=== PATIENT | female | born 1965 | race Caucasian/White ===

== ENCOUNTER 2021-01-24 09:45 | Emergency (ER) | payer OTHER, SELFPAY ==
[2021-01-24 10:01] VITALS: BP 122/79; PULSE 110; RESP 20; TEMP 36.8; O2SAT 96; BMI 23.8
--- NOTE | 2021-01-24 10:06 | XR_ITS ---
WS: [id number] Exam: XR chest 1V portable [id number] Date/Time of Exam: 01/24/2021 10:09 AM Reason For Exam: SOB No priors. There is mild patchy infiltrate in the right lower lobe. Left lower lobe atelectasis noted. No pneumo thorax. No pleural effusion is seen. Normal cardiomediastinal silhouette for technique. Unremarkable regional bony structures. XR/XR chest 1V portable [id number] IMPRESSION: 1. Right basal infiltrate. This could represent pneumonia or chronic change. 2. Left lower lobe atelectasis
--- NOTE | 2021-01-24 11:25 | W.ED.BACK ---
Documented by User: HANNAH Perla 01/24/21 13:43 HPI - Back Pain/Injury General: Chief Complaint: Back Pain/Injury Stated Complaint: BACK PAIN/SOB/SENT FROM Time Seen by Provider: 01/24/21 10:45 Source: patient Mode of arrival: ambulatory Limitations: no limitations History of Present Illness: HPI Narrative: Patient is a 55-year-old female who presents to ED today with a complaint of right-sided back pain and a productive cough. Patient tells me last week she injured her back. 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 Patient states she was seen at the walk-in clinic by Dr. Lopez who placed her on celebrex, baclofen, and tramadol. She states the baclofen has been working good for her back spasms. She states since injuring her back she has now developed a productive cough. She initially attributed it to her smoker's cough however when she noticed a small amount of blood in her sputum she got worried. Patient states she went back to the walk-in clinic and Dr. Lopez sent her to the ED for a CXR (his note was reviewed and did not document the ED recommendation-possibly not completed yet). She states he already called her in a script antibiotics. Patient does not complain of chest pain or SOB. No leg pain/swelling/calf pain. No hematuria or urinary symptoms. MD elicited complaint: back pain Onset (ago): day(s) Timing: constant Location: right upper back Radiation: chest Exacerbating factors: movement, deep breaths and coughing/sneezing Relieving factors: none Associated symptoms: Deny abdominal pain, chills, dysuria, fatigue, fever(s), hematuria, nausea, syncope, urinary urgency or vomiting Treatments prior to arrival: other (NSAID, muscle relaxers, pain meds) Work related injury: Yes Review of Systems Const: Denies: fever(s), chills, body aches, fatigue or malaise Card: Reports: chest pain; Denies: palpitations, irregular heart rhythm, edema, swelling of feet/ankles, lightheadedness, syncope, pre-syncope, dyspnea on exertion, orthopnea, leg pain with exertion or acrocyanosis Resp: Reports: productive cough, pain on inspiration, hemoptysis and chest congestion; Denies: dyspnea, wheezing or stridor GI: Denies: abdominal pain, nausea, vomiting or diarrhea : Denies: flank pain, difficulty voiding, dysuria, urinary frequency, urinary urgency, urinary hesitancy or hematuria Musc: Reports: back pain; Denies: neck pain, extremity pain or joint pain Skin/Breast: Denies: rash Neuro: Denies: headache(s), numbness in extremities, weakness in extremities, sensory changes or dizziness PFS ED PFSH: Medical History (Updated 01/24/21 @ 14:39 by Darin Lopez MD) Acute lumbar myofascial strain Cough Hematemesis/vomiting blood Vomiting Social History Smoking and tobacco status: current every day smoker Alcohol intake: current Physical Exam Const: COMMON NORMALS: no acute distress, average body habitus, patient oriented x3, no limitations, healthy appearing, alert and well nourished GENERAL APPEARANCE: cooperative ORIENTATION/CONSCIOUSNESS: Yes awake, Yes oriented to person, Yes oriented to place and Yes oriented to time HENMT: COMMON NORMALS: normocephalic and atraumatic HEAD & SCALP: normocephalic and atraumatic Neck/C-Spine: COMMON NORMALS: full ROM and no lymphadenopathy Chest: COMMONS NORMALS: normal inspection of the chest OTHER: TTP posterior/lateral chest wall Resp: COMMON NORMALS: normal respiratory effort and clear to auscultation bilaterally EFFORT & INSPECTION: Yes able to speak in complete sentences AUSCULTATION: clear to auscultation bilaterally Cardio: COMMON NORMALS: regular rhythm RATE: tachycardic (mild 105) RHYTHM: regular rhythm GI: COMMON NORMALS: Normal to inspection, nondistended, normoactive bowel sounds present, Soft to palpation, non-tender, No hepatosplenomegaly present and no masses PALPATION: Yes Soft to palpation and Yes No hepatosplenomegaly present Extremity: COMMON NORMALS: normal to inspection and full ROM GENERAL: Yes normal exam except as noted Neuro: ALEX COMA SCALE: document GCS findings Alex coma scale eye opening: Spontaneous Alex coma scale verbal response: Orientated Alex coma scale motor response: Obey commands [place] coma scale total score: 15 COMMON NORMALS: patient oriented x3, moves all extremities, no focal motor deficits, no sensory deficits noted and gait normal SENSORIUM/ORIENTATION: Yes alert, Yes oriented to person, Yes oriented to place and Yes oriented to time Skin: COMMON NORMALS: no rashes or lesions noted GENERAL SKIN EXAM: no rashes or lesions noted Course Vital Signs: Vital signs: Vital Signs Temperature 98.2 F 01/24/21 10:01 Pulse Rate 110 H 01/24/21 13:37 Respiratory Rate 18 01/24/21 13:37 Blood Pressure 127/90 01/24/21 13:37 Pulse Oximetry 96 01/24/21 13:37 MDM - Back Pain/Injury MDM Narrative: Medical decision making narrative: Patient's initial KEREN is consistent with a musculoskeletal back strain. She was/is getting relief from the Baclofen. Most likely patient having shallow inspiration secondary to discomfort and now has developed a right lower lobe pneumonia. Labs are fairly unremarkable. She is mildly tachycardic. I have no suspicion for a PE. Well score would be 2.5 secondary to her tachycardia and hemoptysis although she has only had one episode of this and that could be contributed to the pneumonia and/or chronic smoking. No urinary symptoms or hematuria to suggest renal pathology for the flank/back pain. No abdominal radiation. No chest pain/SOB. At this time will treat for outpatient CAP with augmentin/macrolid following guidelines for therapy and recommend close follow up with PCP for resolving symptoms. Return to ED precautions given. Lab Data: Labs: Lab Results 01/24/21 01/24/21 11:57 11:57 WBC 10.1 10^3/uL H 10 ^3/uL (4.0-10.0) RBC 4.79 10^6/uL 10^6 /uL (4.1-5.3) Hgb 16.7 g/dL H g/dL (11.5-15.3) Hct 48.0 % H % (37.0-47.0) MCV 100.2 fl H fl (81-99) MCH 34.9 pg H pg (28.0-34.0) MCHC 34.8 g/dL g/dL (30.0-36.0) RDW 12.3 % % (12.1-15.1) Plt Count 149 10^3/cmm 10^3 /cmm (130-400) MPV 10.0 fL fL (7.4-10.4) Neut % (Auto) 78.1 % % Lymph % (Auto) 11.7 % % [place] % (Auto) 8.9 % % Eos % (Auto) 0.3 % % Baso % (Auto) 0.5 % % Neut # (Auto) 7.86 10^3/uL H 10 ^3/uL (1.8-7.7) Lymph # (Auto) 1.2 10^3/uL 10^3/ uL (0.8-4.8) [place] # (Auto) 0.9 10^3/uL 10^3/ uL (0.2-0.9) Eos # (Auto) 0.0 10^3/uL 10^3/ uL (0.0-0.8) Baso # (Auto) 0.1 10^3/uL 10^3/ uL (0.0-0.1) Nucleated RBC % (a uto) 0 % % Nucleated RBCs # 0.0 /100WBC /100W BC Sodium 136 mmol/L mmol/L (136-145) Potassium 4.1 mmol/L mmol/L (3.5-5.1) Chloride 94 mmol/L L mmol/ L (98-107) Carbon Dioxide 22 mmol/L mmol/L (22-29) Anion Gap 24.1 H (5-19) BUN 9 mg/dL mg/dL (6-20) Creatinine 0.4 mg/dL L mg/dL (0.5-0.9) GFR Calculation 165.7 mL/min H mL /min (90-130) Glucose 97 mg/dL mg/dL (65-115) Calculated Osmolal ity 281 mOsm/kg L mOs m/kg (285-295) Calcium 9.3 mg/dL mg/dL (8.5-10.5) Total Bilirubin 0.9 mg/dL mg/dL (0.15-1.2) AST 31 U/L U/L (0-32) ALT 22 U/L U/L (0-33) Alkaline Phosphata se 85 IU/L IU/L (35-105) Total Protein 8.8 g/dL H g/dL (6.6-8.7) Albumin 4.1 g/dL g/dL (3.5-5.2) Globulin 4.7 g/dL H g/dL (1.3-4.6) Procalcitonin 0.25 ng/mL ng/mL (0-0.5) Imaging Data^: CXR: Radiologist's impression: [facility] [address] [place] [address] XRay Report Signed Patient: Kathleen Ceron Unit #: [id number] : 1965 Age/Sex: 55 / F ADM Date: 01/24/21 Loc: ER Room/Bed: Attending Dr: Ordering Provider/Ordering MD: Glenn Funk DO Date of Service: 01/24/21 Procedure(s): XR chest 1V portable [id number] Accession Number(s): [id number] Report Number: [id number] WS: [id number] Exam: XR chest 1V portable [id number] Date/Time of Exam: 01/24/2021 10:09 AM Reason For Exam: SOB No priors. There is mild patchy infiltrate in the right lower lobe. Left lower lobe atelectasis noted. No pneumothorax. No pleural effusion is seen. Normal cardiomediastinal silhouette for technique. Unremarkable regional bony structures. XR/XR chest 1V portable [id number] IMPRESSION: 1. Right basal infiltrate. This could represent pneumonia or chronic change. 2. Left lower lobe atelectasis Dictated By: Steve Tyson DO Signed By: Steve Tyson DO Signed Date/Time: 01/24/21 1018 DD/ 1016 Discharge Plan Discharge Patient Disposition: Home Clinical Impression: Pneumonia Qualifiers: Pneumonia type: due to unspecified organism Laterality: right Lung location: lower lobe of lung Qualified Code(s): J18.9 - Pneumonia, unspecified organism Condition: Stable Prescriptions: New azithromycin 250 mg tablet See Rx Instructions .ROUTE .COMPLEX Qty: 6 RF: 0 Augmentin 875-125 mg tablet 1 tab PO Q12H 7 Days Qty: 14 RF: 0 No Action celecoxib 200 mg capsule 200 mg PO BID PRN (Reason: pain) Qty: 30 RF: 1 baclofen 5 mg tablet 5 mg PO TID Qty: 30 RF: 0 tramadol 50 mg tablet 50 mg PO Q8H PRN (Reason: mod to severe pain) Qty: 20 RF: 0 ondansetron 4 mg tablet,disintegrating 4 mg PO Q8H PRN (Reason: nausea and vomiting) Qty: 7 RF: 0 Discharge Orders: Discharge ED (Routine); Ordered 01/24/21 Ordered By: Etelvina Bull Referrals: Darin Lopez MD [Primary Care Provider] - Patient Instructions: Pneumonia (ED) Activity Restrictions/Additional Instructions: As we discussed please follow-up with Dr. Lopez in 3 to 5 days for reevaluation. You need to return to the emergency department for worsening or non-improving pain, severe shortness of breath, chest pain, difficulty breathing, passing out episodes, or any other concerns you may have. I hope you begin to feel better soon. Stand Alone Forms: Work/School Release Coding Level of Care Code ED [employer] for [employer] Fwd Exam Comprehensive Documented by User: Lexx Spence MD 01/27/21 21:47 HPI - Back Pain/Injury General: Chief Complaint: Back Pain/Injury Stated Complaint: BACK PAIN/SOB/SENT FROM Time Seen by Provider: 01/24/21 10:45 [facility] ED PFSH: Medical History (Updated 01/24/21 @ 14:39 by Darin Lpoez MD) Acute lumbar myofascial strain Cough Hematemesis/vomiting blood Vomiting Social History Smoking and tobacco status: current every day smoker Alcohol intake: current Course Vital Signs: Vital signs: Vital Signs Temperature 98.2 F 01/24/21 10:01 Pulse Rate 110 H 01/24/21 13:37 Respiratory Rate 18 01/24/21 13:37 Blood Pressure 127/90 01/24/21 13:37 Pulse Oximetry 96 01/24/21 13:37 MDM - Back Pain/Injury MDM Narrative: Medical decision making narrative: I have reviewed documentation, labs, imaging. Lexx Spence MD Emergency Medicine Lab Data: Labs: Lab Results 01/24/21 01/24/21 11:57 11:57 WBC 10.1 10^3/uL H 10 ^3/uL (4.0-10.0) RBC 4.79 10^6/uL 10^6 /uL (4.1-5.3) Hgb 16.7 g/dL H g/dL (11.5-15.3) Hct 48.0 % H % (37.0-47.0) MCV 100.2 fl H fl (81-99) MCH 34.9 pg H pg (28.0-34.0) MCHC 34.8 g/dL g/dL (30.0-36.0) RDW 12.3 % % (12.1-15.1) Plt Count 149 10^3/cmm 10^3 /cmm (130-400) MPV 10.0 fL fL (7.4-10.4) Neut % (Auto) 78.1 % % Lymph % (Auto) 11.7 % % [place] % (Auto) 8.9 % % Eos % (Auto) 0.3 % % Baso % (Auto) 0.5 % % Neut # (Auto) 7.86 10^3/uL H 10 ^3/uL (1.8-7.7) Lymph # (Auto) 1.2 10^3/uL 10^3/ uL (0.8-4.8) [place] # (Auto) 0.9 10^3/uL 10^3/ uL (0.2-0.9) Eos # (Auto) 0.0 10^3/uL 10^3/ uL (0.0-0.8) Baso # (Auto) 0.1 10^3/uL 10^3/ uL (0.0-0.1) Nucleated RBC % (a uto) 0 % % Nucleated RBCs # 0.0 /100WBC /100W BC Sodium 136 mmol/L mmol/L (136-145) Potassium 4.1 mmol/L mmol/L (3.5-5.1) Chloride 94 mmol/L L mmol/ L (98-107) Carbon Dioxide 22 mmol/L mmol/L (22-29) Anion Gap 24.1 H (5-19) BUN 9 mg/dL mg/dL (6-20) Creatinine 0.4 mg/dL L mg/dL (0.5-0.9) GFR Calculation 165.7 mL/min H mL /min (90-130) Glucose 97 mg/dL mg/dL (65-115) Calculated Osmolal ity 281 mOsm/kg L mOs m/kg (285-295) Calcium 9.3 mg/dL mg/dL (8.5-10.5) Total Bilirubin 0.9 mg/dL mg/dL (0.15-1.2) AST 31 U/L U/L (0-32) ALT 22 U/L U/L (0-33) Alkaline Phosphata se 85 IU/L IU/L (35-105) Total Protein 8.8 g/dL H g/dL (6.6-8.7) Albumin 4.1 g/dL g/dL (3.5-5.2) Globulin 4.7 g/dL H g/dL (1.3-4.6) Procalcitonin 0.25 ng/mL ng/mL (0-0.5) Discharge Plan Discharge Patient Disposition: Home Clinical Impression: Pneumonia Qualifiers: Pneumonia type: due to unspecified organism Laterality: right Lung location: lower lobe of lung Qualified Code(s): J18.9 - Pneumonia, unspecified organism Condition: Stable Prescriptions: New azithromycin 250 mg tablet See Rx Instructions .ROUTE .COMPLEX Qty: 6 RF: 0 Augmentin 875-125 mg tablet 1 tab PO Q12H 7 Days Qty: 14 RF: 0 No Action celecoxib 200 mg capsule 200 mg PO BID PRN (Reason: pain) Qty: 30 RF: 1 baclofen 5 mg tablet 5 mg PO TID Qty: 30 RF: 0 tramadol 50 mg tablet 50 mg PO Q8H PRN (Reason: mod to severe pain) Qty: 20 RF: 0 ondansetron 4 mg tablet,disintegrating 4 mg PO Q8H PRN (Reason: nausea and vomiting) Qty: 7 RF: 0 Discharge Orders: Discharge ED (Routine); Ordered 01/24/21 Ordered By: Etelvina Bull Referrals: Darin Lopez MD [Primary Care Provider] - Patient Instructions: Pneumonia (ED) Activity Restrictions/Additional Instructions: As we discussed please follow-up with Dr. Lopez in 3 to 5 days for reevaluation. You need to return to the emergency department for worsening or non-improving pain, severe shortness of breath, chest pain, difficulty breathing, passing out episodes, or any other concerns you may have. I hope you begin to feel better soon. Stand Alone Forms: Work/School Release Coding Level of Care Code ED [employer] for [place] Fwd Exam Comprehensive
[2021-01-24 12:15] LABS: Basophils # 0.1 10^3/uL (0.0-0.1); Basophils % 0.5 %; Eosinophils % 0.3 %; Hemoglobin 16.7 g/dL (11.5-15.3); Lymphocytes # 1.2 10^3/uL (0.8-4.8); Lymphocytes % 11.7 %; Mean Corpuscular HGB Conc 34.8 g/dL (30.0-36.0); Mean Corpuscular Hemoglobin 34.9 pg (28.0-34.0); Mean Corpuscular Volume 100.2 fl (81-99); Monocytes # 0.9 10^3/uL (0.2-0.9); Monocytes % 8.9 %; Neutrophils # 7.86 10^3/uL (1.8-7.7); Neutrophils % 78.1 %; Nucleated Red Blood Cells % 0 %; Platelet Count 149 10^3/cmm (130-400); Red Blood Count 4.79 10^6/uL (4.1-5.3); Red Cell Distribution Width 12.3 % (12.1-15.1); White Blood Count 10.1 10^3/uL (4.0-10.0)
[2021-01-24 12:45] VITALS: BP 124/91; PULSE 111; RESP 18; O2SAT 94
[2021-01-24 12:59] LABS: Alanine Aminotransferase 22 U/L (0-33); Albumin Level 4.1 g/dL (3.5-5.2); Alkaline Phosphatase 85 IU/L (35-105); Anion Gap 24.1 (5-19); Aspartate Amino Transferase 31 U/L (0-32); Blood Urea Nitrogen 9 mg/dL (6-20); Calcium 9.3 mg/dL (8.5-10.5); Carbon Dioxide 22 mmol/L (22-29); Chloride 94 mmol/L (98-107); Globulin 4.7 g/dL (1.3-4.6); Glomerular Filtration Rate 165.7 mL/min (90-130); Glucose 97 mg/dL (65-115); Osmolality Calculated 281 mOsm/kg (285-295); Potassium 4.1 mmol/L (3.5-5.1); Sodium 136 mmol/L (136-145); Total Bilirubin 0.9 mg/dL (0.15-1.2); Total Protein 8.8 g/dL (6.6-8.7)
[2021-01-24 13:03] LABS: Procalcitonin 0.25 ng/mL (0-0.5)
[2021-01-24 13:37] VITALS: BP 127/90; PULSE 110; RESP 18; O2SAT 96
== END 2021-01-24 13:38 | disposition home or self-care (01) ==
PROVIDERS: Emergency Provider Physician Assistant; PCP Family Medicine Adult Medicine
DX: J18.9 Pneumonia, unspecified organism (principal); F17.210 Nicotine dependence, cigarettes, uncomplicated
CPT/HCPCS: 71045; 80053; 84145; 85025; 99282

== ENCOUNTER 2021-02-11 11:18 | Emergency (ER) | payer OTHER, SELFPAY ==
--- NOTE | 2021-02-11 11:30 | USCV_ITS ---
Kathleen Ceron Age: 55 Gender: F : 1965 Exam Date: 02/11/2021 12:30 Ordering Phys: Shon Moran MD Technologist: Brittany Hylton [place] [facility] [place]ication: LLE PAIN AND SWELLING HISTORY: Lower extremity swelling. Lower extremity pain. PROCEDURES: Venous duplex imaging was performed in only the left lower extremity. The following venous structures were evaluated: common femoral vein, profunda vein, proximal portion of the greater saphenous vein, superficial femoral vein, and the popliteal vein. In addition, the posterior tibial and peroneal trunk were evaluated. Serial compression, augmentation maneuvers, and spectral Doppler flow evaluation were performed. FINDINGS: + FOR ACUTE DVT IN LEFT CFV, PERF, SFV PROX-DIST, POP V, AND PTV. CONCLUSIONS Acute DVT Left common femoral, femoral, deep femoral, popliteal and posterior tibial veins. Additional thrombus in GSV Bari Cardoza MD (Electronically Signed) Final Date: 11 February 2021 17:26 S
[2021-02-11 11:50] VITALS: BP 120/77; PULSE 72; RESP 16; TEMP 36.8; O2SAT 98
--- NOTE | 2021-02-11 12:00 | W.ED.EXTPRO ---
HPI - Extremity Problem General: Chief complaint: Extremity Problem,Nontraumatic Stated complaint: LLE SWELLING: SENT BY PCP Time Seen by Provider: 02/11/21 11:57 Source: patient Mode of arrival: ambulatory Limitations: no limitations History of Present Illness: HPI Narrative: 55-year-old female presents to the ER today for left lower extremity swelling x8 days. Patient reports about 8 to 10 days ago she injured her back at work. Patient has been being seen by her PCP for her back injury and then reports that her left lower extremity started swelling. Patient has been treated with steroids and muscle relaxers. She reports also during that time she developed a pneumonia and had to quit the medications but the pneumonia and back pain has resolved at this time. Patient reports there is some mild tenderness in the left lower extremity, including some mild tenderness at the groin. Patient denies any redness. Patient reports no other known injury. Patient denies any history of DVT or clotting conditions. MD Complaint: extremity swelling Onset (ago): day(s) Pain Consistency: intermittent Location: left and lower extremity Severity scale (1-10): 4 Quality: aching Radiation: none Relieving factors: rest Exacerbating factors: weight bearing and walking Associated symptoms: Reports no associated symptoms; Deny chest pain, fever(s) or rash Review of Systems General: Reports: 10 or more systems reviewed and unremarkable except in HPI and below Const: Denies: fever(s), chills or body aches ENMT: Denies: throat pain, nasal discharge or nasal congestion Card: Denies: chest pain or palpitations Resp: Denies: dyspnea, productive cough or wheezing GI: Denies: abdominal pain, nausea, vomiting, diarrhea or constipation Musc: Reports: extremity pain and extremity swelling; Denies: neck pain or back pain Skin/Breast: Denies: rash or erythema Neuro: Denies: headache(s) or numbness in extremities PFSH ED PFSH: Medical History Acute lumbar myofascial strain Cough Hematemesis/vomiting blood Muscle strain of left thigh Pain and swelling of left lower leg Pneumonia Vomiting Social History Alcohol intake: current Physical Exam Const: COMMON NORMALS: no acute distress, average body habitus and patient oriented x3 GENERAL APPEARANCE: cooperative and comfortable HENMT: COMMON NORMALS: normocephalic, external ears normal and Normal external nose present HEAD & SCALP: normocephalic NOSE: Normal external nose present EXTERNAL EAR: Yes external ears normal Eye: COMMON NORMALS: conjunctivae normal CONJUNCTIVA: Yes conjunctivae normal Resp: COMMON NORMALS: normal respiratory effort and clear to auscultation bilaterally EFFORT & INSPECTION: Yes able to speak in complete sentences AUSCULTATION: clear to auscultation bilaterally Cardio: COMMON NORMALS: regular rate, regular rhythm and No murmurs present (Cardio) RATE: regular rate RHYTHM: regular rhythm Extremity: COMMON NORMALS: full ROM LEFT LOWER EXTREMITY: Yes lower leg Left lower leg: Yes inspection (swelling noted, 2+ edema when compared to RLE), Yes palpation (none tender to palpation, no abnormality palpated in groin) and Yes neurovascular exam (pulses intact bilaterally and equal) Neuro: COMMON NORMALS: patient oriented x3, moves all extremities and no sensory deficits noted Psych: COMMON NORMALS: mental status grossly normal, Normal thought process present, cooperative and normal affect THOUGHT PROCESS: Normal thought process present Skin: COMMON NORMALS: no rashes or lesions noted and no wounds GENERAL SKIN EXAM: no rashes or lesions noted Course ED course: Patient presents to the ER today for left lower extremity swelling x8 days. We will go ahead with ultrasound at this time to rule out DVT. Patient has no tenderness in the lower extremity, negative Homans sign. Patient has no other symptoms related to the lower extremity swelling. Recently patient had pneumonia and low back pain however those have both improved. Reevaluation(s): Reevaluation #1: Patient doing well with no complaints at this time. Discussed with patient findings of DVT. We discussed Eliquis and will go ahead and start that in the ER today and give patient a prescription for that. She has a follow-up with her doctor on Sunday already scheduled. Time: 12:49 Consultations: Consultation #1: Dr. Moran regarding findings and sending pt home on Eliquis. Dr. Moran agrees with treatment plan. Vital Signs: Vital signs: Vital Signs Temperature 98.2 F 02/11/21 11:50 Pulse Rate 72 02/11/21 11:50 Respiratory Rate 16 02/11/21 11:50 Blood Pressure 120/77 02/11/21 11:50 Pulse Oximetry 98 02/11/21 11:50 Critical Care Time Critical Care Time: Critical Care Time: No MDM - Extremity (Nontraumatic) MDM Narrative: Medical decision making narrative: 55-year-old female presents to the ER today for left lower extremity swelling for the last 8 days. Patient had recent low back injury and was placed on steroids in addition to then developing a pneumonia. Patient reports when she developed a pneumonia she stopped the steroid use. She noticed her left leg started swelling about 8 days ago. She denies pain in the lower leg but reports some pain in the left groin. Patient denies any redness in the leg. Denies any calf pain. She reports the swelling has continued to worsen daily and is not improving. Patient denies any history of DVT. Ultrasound indicates a DVT that is occlusive and involves all of the veins of the lower extremity. Patient does have good blood flow to the extremity at this time. Pulses are equal bilaterally. Patient's pain is minimal at this time. Patient will be started on Eliquis today. We will do first dose in ER and send patient home with prescription. Patient will be on 10 mg twice daily for 7 days. She has an appointment to follow-up with her PCP on Sunday which she should keep. We discussed very close return precautions. Patient develops chest pain or shortness of breath she should return to the ER immediately. Patient verbalized understanding and is in agreement with this treatment plan. Lab Data: Attestation: I reviewed the patient's lab results. Labs: Lab Results 02/11/21 02/11/21 02/11/21 12:50 12:50 12:50 WBC 13.3 10^3/uL H 10 ^3/uL (4.0-10.0) RBC 4.13 10^6/uL 10^6 /uL (4.1-5.3) Hgb 14.1 g/dL g/dL (11.5-15.3) Hct 42.1 % % (37.0-47.0) MCV 101.9 fl H fl (81-99) MCH 34.1 pg H pg (28.0-34.0) MCHC 33.5 g/dL g/dL (30.0-36.0) RDW 12.7 % % (12.1-15.1) Plt Count 275 10^3/cmm 10^3 /cmm (130-400) MPV 8.9 fL fL (7.4-10.4) Neut % (Auto) 83.4 % % Lymph % (Auto) 11.0 % % Payne % (Auto) 4.1 % % Eos % (Auto) 0.1 % % Baso % (Auto) 0.3 % % Neut # (Auto) 11.13 10^3/uL H 1 0^3/uL (1.8-7.7) Lymph # (Auto) 1.5 10^3/uL 10^3/ uL (0.8-4.8) Payne # (Auto) 0.5 10^3/uL 10^3/ uL (0.2-0.9) Eos # (Auto) 0.0 10^3/uL 10^3/ uL (0.0-0.8) Baso # (Auto) 0.0 10^3/uL 10^3/ uL (0.0-0.1) Nucleated RBC % (a uto) 0 % % Nucleated RBCs # 0.0 /100WBC /100W BC PT 13.10 SECONDS SEC ONDS (12.1-14.9) INR 0.96 (0.8-1.2) APTT 25.9 SECONDS SECO NDS (23.9-36.7) Sodium 137 mmol/L mmol/L (136-145) Potassium 4.0 mmol/L mmol/L (3.5-5.1) Chloride 100 mmol/L mmol/L (98-107) Carbon Dioxide 26 mmol/L mmol/L (22-29) Anion Gap 15.0 (5-19) BUN 5 mg/dL L mg/dL (6-20) Creatinine 0.3 mg/dL L mg/dL (0.5-0.9) GFR Calculation 231.0 mL/min H mL /min (90-130) Glucose 126 mg/dL H mg/dL (65-115) Calculated Osmolal ity 283 mOsm/kg L mOs m/kg (285-295) Calcium 8.8 mg/dL mg/dL (8.5-10.5) Total Bilirubin 0.2 mg/dL mg/dL (0.15-1.2) AST 31 U/L U/L (0-32) ALT 38 U/L H U/L (0-33) Alkaline Phosphata se 81 IU/L IU/L (35-105) Total Protein 7.1 g/dL g/dL (6.6-8.7) Albumin 3.8 g/dL g/dL (3.5-5.2) Globulin 3.3 g/dL g/dL (1.3-4.6) Imaging Data^: US Vascular: Radiologist's impression: Per motor vehicle technician, patient has a DVT of the left lower leg which is occlusive. Discharge Plan Discharge Patient Disposition: Home Clinical Impression: Acute deep vein thrombosis (DVT) of left lower extremity Qualifiers: Affected thrombotic vein of extremity: unspecified vein of extremity Qualified Code(s): I82.402 - Acute embolism and thrombosis of unspecified deep veins of left lower extremity Condition: Stable Prescriptions: New Eliquis 5 mg tablet 10 mg PO Q12H 7 Days Qty: 28 RF: 0 No Action ondansetron 4 mg tablet,disintegrating 4 mg PO Q8H PRN (Reason: nausea and vomiting) Qty: 7 RF: 0 prednisone 20 mg tablet 60 mg PO DAILY 5 Days Qty: 15 RF: 0 baclofen 10 mg tablet 10 mg PO TID Qty: 30 RF: 0 celecoxib 200 mg capsule 200 mg PO BID PRN (Reason: pain) Qty: 30 RF: 1 tramadol 50 mg tablet 50 mg PO Q8H PRN (Reason: mod to severe pain) Qty: 30 RF: 0 Discharge Orders: Discharge ED (Routine); Ordered 02/11/21 Ordered By: Lore Abbasi Referrals: Darin Lopez MD [Primary Care Provider] - Discharge Diet: Usual diet Discharge Activity: Limit activity as instructed Patient Instructions: Apixaban (By mouth) (Eliquis), Deep Vein Thrombosis (ED), Opioid Safety Activity Restrictions/Additional Instructions: Take Eliquis as prescribed. For pain, take short walks and wear compression stockings, heating pad use is okay. Follow-up with PCP in 3 days at already scheduled appointment. Return to the ER with any new symptoms including chest pain or shortness of breath. Coding Level of Care Code ED Clinical Quality Manager for Chg Fwd Exam Comprehensive
[2021-02-11] MEDS: apixaban 5 mg Tablet 10 MG PO (12:56)
[2021-02-11 13:10] LABS: Basophils % 0.3 %; Eosinophils % 0.1 %; Hematocrit 42.1 % (37.0-47.0); Hemoglobin 14.1 g/dL (11.5-15.3); Lymphocytes # 1.5 10^3/uL (0.8-4.8); Mean Corpuscular HGB Conc 33.5 g/dL (30.0-36.0); Mean Corpuscular Hemoglobin 34.1 pg (28.0-34.0); Mean Corpuscular Volume 101.9 fl (81-99); Mean Platelet Volume 8.9 fL (7.4-10.4); Monocytes # 0.5 10^3/uL (0.2-0.9); Monocytes % 4.1 %; Neutrophils # 11.13 10^3/uL (1.8-7.7); Neutrophils % 83.4 %; Nucleated Red Blood Cells % 0 %; Platelet Count 275 10^3/cmm (130-400); Red Blood Count 4.13 10^6/uL (4.1-5.3); Red Cell Distribution Width 12.7 % (12.1-15.1); White Blood Count 13.3 10^3/uL (4.0-10.0)
[2021-02-11 13:29] LABS: INR 0.96 (0.8-1.2)
[2021-02-11 13:30] LABS: Partial Thromboplastin Time 25.9 SECONDS (23.9-36.7)
[2021-02-11 13:33] LABS: Alanine Aminotransferase 38 U/L (0-33); Albumin Level 3.8 g/dL (3.5-5.2); Alkaline Phosphatase 81 IU/L (35-105); Aspartate Amino Transferase 31 U/L (0-32); Blood Urea Nitrogen 5 mg/dL (6-20); Calcium 8.8 mg/dL (8.5-10.5); Carbon Dioxide 26 mmol/L (22-29); Chloride 100 mmol/L (98-107); Globulin 3.3 g/dL (1.3-4.6); Glucose 126 mg/dL (65-115); Osmolality Calculated 283 mOsm/kg (285-295); Sodium 137 mmol/L (136-145); Total Bilirubin 0.2 mg/dL (0.15-1.2); Total Protein 7.1 g/dL (6.6-8.7)
== END 2021-02-11 13:17 | disposition home or self-care (01) ==
PROVIDERS: Emergency Provider Physician Assistant; PCP Family Medicine Adult Medicine
DX: I82.402 Acute embolism and thrombosis of unspecified deep veins of left lower extremity (principal)
CPT/HCPCS: 80053; 85025; 85610; 85730; 93971; 99283

== ENCOUNTER → 2023-08-13 14:04 | Outpatient (BNVA) | payer OTHER, SELFPAY | PROVIDERS: PCP Family Medicine Adult Medicine; Visit Provider Family Medicine | DX: I82.409 Acute embolism and thrombosis of unspecified deep veins of unspecified lower extremity (principal) | CPT/HCPCS: 80053; 82607; 85025 ==

== ENCOUNTER 2023-08-30 15:15 | Outpatient (CLI) | payer OTHER, SELFPAY ==
--- NOTE | 2023-08-30 15:15 | USCV_ITS ---
Kathleen Ceron ([facility]) Age: 58 Gender: F : 1965 Exam Date: 08/30/2023 15:04 Ordering Phys: Leobardo Hein MD Technologist: BARRY [place]am [place] [facility] [place]: Hx of DVT. Currently on eliquis HISTORY: Hx of DVT PROCEDURES: Venous duplex imaging was performed in only the left lower extremity. The following venous structures were evaluated: common femoral vein, profunda vein, proximal portion of the greater saphenous vein, superficial femoral vein, and the popliteal vein. In addition, the posterior tibial and peroneal trunk were evaluated. Serial compression, augmentation maneuvers, and spectral Doppler flow evaluation were performed. FINDINGS: No evidence of DVT seen in any vessel visualized at this time. CONCLUSIONS No evidence of left lower extremity DVT. Bari Cardoza MD (Electronically Signed) Final Date: 30 August 2023 15:31 S
== END 2023-08-30 15:16 | disposition home or self-care (01) ==
PROVIDERS: PCP Family Medicine Adult Medicine; Visit Provider Family Medicine
DX: Z86.718 Personal history of other venous thrombosis and embolism (principal); I82.409 Acute embolism and thrombosis of unspecified deep veins of unspecified lower extremity; Z79.01 Long term (current) use of anticoagulants
CPT/HCPCS: 93971